=== PATIENT | male | born 1935 | race Caucasian/White ===

== ENCOUNTER → 2016-10-11 | Outpatient (CLI) | payer MEDICARE ==
[2016-10-11 18:37] LABS: BASOPHILS % (AUTO) 1 % (0-2); EOSINOPHILS # (AUTO) 0.3 10^3uL; EOSINOPHILS % (AUTO) 4 % (0-4); LYMPHOCYTES # (AUTO) 1.9 X10^3; MEAN CORPUSCULAR HGB CONC 34.1 g/dL (31.0-37.0); MEAN CORPUSCULAR VOLUME 85 FL (80-100); MEAN PLATELET VOLUME 10.1 FL (6.0-9.5); MONOCYTES # (AUTO) 0.7 X10^3; MONOCYTES % (AUTO) 11 % (3-11); NEUTROPHILS # (AUTO) 4.1 X10^3; NEUTROPHILS % (AUTO) 58 % (51-67); PLATELET COUNT 311 10^3uL (150-450); WHITE BLOOD COUNT 7.04 10^3uL (4.0-11.0)
[2016-10-11 18:44] LABS: ALBUMIN 4.4 g/dL (3.4-5.0); ANION GAP 15.2 MEQ/L (3-15); CALCULATED IONIZED CALCIUM 4.2 mg/dL (3.8-4.6); TOTAL PROTEIN 7.5 g/dL (6.4-8.5)
== END ==
LOC: RAD 16:26
PROVIDERS: ATTEND Family Medicine
DX: R05 Cough (principal); I10 Essential (primary) hypertension; E11.9 Type 2 diabetes mellitus without complications
CPT/HCPCS: 36415; 71020; 80053; 83036; 85025

== ENCOUNTER 2016-10-15 15:47 | Outpatient (RCR) | payer MEDICARE ==
[~2016-10-15 15:47] MED LIST: ADV250-14 IH; ALBU8.5H6 INH; BACI3.5O5 OD; CMBV14CC IH; EPIN15AE INH; IBUP-788 PO; LVT.05T PO; MAGN296S PO; MAGN296S4; METH4TAB27 PO; MINO100T3 PO; NFMET1000 PO; POLY119P5 PO; PRED20TA PO; SOLI5TAB2 PO; TAMS-8 PO; [UNRECOGNIZED DRUG - CODE] PO
[2017-01-01] MEDS ORDERED: TMZP15C PO (11:24)
[2017-01-01] MEDS ORDERED: SERT50TA9 PO (11:24)
[2017-01-01] MEDS ORDERED: PRAV10TA PO (11:24)
[2017-01-01] MEDS ORDERED: TIZAN4T PO (11:24)
[2017-01-01] MEDS ORDERED: METF850T2 PO (11:24)
== END 2017-01-08 19:22 | disposition home or self-care (01) ==
LOC: LAB 15:47
PROVIDERS: ATTEND Family Medicine
DX: D64.9 Anemia, unspecified (principal); D63.8 Anemia in other chronic diseases classified elsewhere
CPT/HCPCS: 36415; 82607; 82728; 82746; 83540; 83550

== ENCOUNTER → 2016-12-16 | Outpatient (REF) | payer MEDICARE | LOC: LAB 16:53 | PROVIDERS: ATTEND Family Medicine | DX: I10 Essential (primary) hypertension (principal); D63.8 Anemia in other chronic diseases classified elsewhere; E11.9 Type 2 diabetes mellitus without complications; G47.09 Other insomnia | CPT/HCPCS: 82728; 82746; 83540; 83550; 85014; 85018 ==

== ENCOUNTER 2017-01-01 10:56 | Outpatient (RCR) | payer MEDICARE ==
[~2017-01-01] VITALS: Ht 172.7 cm; Wt 63.0 kg
[2017-01-01] MEDS ORDERED: NS FLUSH 3 ML PRN IV (11:10)
[2017-01-01] MEDS ORDERED: IRON SUCROSE 200 MG in NORMAL SALINE 150 ML IV ONE (11:10)
[2017-01-01] MEDS ORDERED: METF850T2 PO (11:24)
[2017-01-01] MEDS ORDERED: PRAV10TA PO (11:24)
[2017-01-01] MEDS ORDERED: TIZAN4T PO (11:24)
[2017-01-01] MEDS ORDERED: TMZP15C PO (11:24)
[2017-01-01] MEDS ORDERED: SERT50TA9 PO (11:24)
[2017-01-03] MEDS ORDERED: IRON SUCROSE 200 MG in NORMAL SALINE 150 ML IV ONE (11:15)
[2017-01-03] MEDS: NS FLUSH 10 ML PRN IV (11:30)
[2017-01-06] MEDS ORDERED: IRON SUCROSE 200 MG in NORMAL SALINE 150 ML IV ONE (11:25)
[2017-01-06 11:30] VITALS: BP 135/66
[2017-01-06] MEDS: NS FLUSH 10 ML PRN IV (12:47)
[2017-01-06 12:50] VITALS: BP 131/59
--- NOTE | 2017-01-08 11:15 | NUR ---
To room 347 ambulatory
[2017-01-08] MEDS: NS FLUSH 10 ML PRN IV (11:22)
[2017-01-08 11:25] VITALS: BP 122/67
[2017-01-08] MEDS ORDERED: IRON SUCROSE 200 MG in NORMAL SALINE 150 ML IV ONE (11:30)
--- NOTE | 2017-01-08 11:30 | NUR ---
IV start LFA c 20 G X 1 attempt c aseptic technique - SL applied
--- NOTE | 2017-01-08 11:47 | NUR ---
Venafer IV hung to infuse @ 160 mL/hr
--- NOTE | 2017-01-08 12:35 | NUR ---
IV venafer infused
--- NOTE | 2017-01-08 12:37 | NUR ---
IV DC'd - pressure held until bleeding stopped - drsg applied
--- NOTE | 2017-01-08 12:43 | NUR ---
Dismissed to home - driving self
== END 2017-01-08 12:43 | disposition home or self-care (01) ==
LOC: EUOP 01-03 10:53 → OB 01-06 11:09 → EUOP 01-06 11:09 → ICU 01-08 11:10 → EUOP 01-08 12:43
PROVIDERS: ATTEND Family Medicine
DX: D64.89 Other specified anemias (principal)
CPT/HCPCS: 96365; J1756; J7050; 36000